=== PATIENT | male | born 1940 | race Caucasian/White ===

== ENCOUNTER 2018-07-27 19:45 | Emergency (ER) | payer OTHER, BC ==
[~2018-07-27] VITALS: Ht 180.3 cm; Wt 106.6 kg
[~2018-07-27 19:45] MED LIST: DIA5 PO; ETODOLAC PO; LISINOPRIL HCTZ1 TAB PO; METFORMIN500 MG PO; VYTORIN 10 MG-41 TAB PO; ZYL300 PO; [UNRECOGNIZED DRUG - OTHER] PO
[2018-07-27 19:50] VITALS: Ht 180.3 cm; Wt 106.6 kg
[2018-07-27 21:19] VITALS: BP 180/96
== END 2018-07-27 21:19 | disposition home or self-care (01) ==
LOC: ED 19:45
DX: H92.01 Otalgia, right ear (principal); I10 Essential (primary) hypertension; E11.9 Type 2 diabetes mellitus without complications
CPT/HCPCS: J2001

== ENCOUNTER 2018-08-04 18:29 | Emergency (ER) | payer OTHER, BC ==
[~2018-08-04] VITALS: Ht 180.3 cm; Wt 106.6 kg
[2018-08-04 18:47] VITALS: Ht 180.3 cm; Wt 106.6 kg
[2018-08-04 22:17] VITALS: BP 156/93
== END 2018-08-04 21:40 | disposition home or self-care (01) ==
LOC: ED 18:29
DX: T85.838A Hemorrhage due to other internal prosthetic devices, implants and grafts, initial encounter (principal); I10 Essential (primary) hypertension; E11.9 Type 2 diabetes mellitus without complications; Z98.890 Other specified postprocedural states; Z85.828 Personal history of other malignant neoplasm of skin